=== PATIENT | male | born 1945 | race Caucasian/White ===

== ENCOUNTER 2019-06-05 14:51 | Outpatient (CLI) | payer OTHER ==
--- NOTE | 2019-06-16 09:40 | CONSULTATION REPORT ---
CHIEF COMPLAINT: Left shoulder pain. HISTORY OF PRESENT ILLNESS: This right-hand dominant 73-year-old white male is seen accompanied by his today for recommendations regarding treatment of his left shoulder. He has had shoulder pain for what he estimates as about eight months. He does indicate that he developed this gradually and currently he has bone on bone. He has been seen at the [facility] in [place], [place], sees Dr. Lau there for routine primary care needs, indicates he has seen Dr. Doshi, an orthopedist at the [facility] in February of this year and was advised that he needed to go ahead and get a left shoulder replacement procedure done. Dr. Doshi does not do these procedures himself, and the patient was advised to seek same at private facility. Referral has been provided for evaluation and treatment including shoulder replacement on the left as indicated. I do note that the patient describes his pain as intermittent, describes the quality of pain as sharp, indicates it is worsening. He indicates his pain at rest is 3/10 and pain with activity is 10/10. Pain has progressed with activities of daily living. He does have night pain which awakens him at night. His left shoulder pain is worse with activity, lifting, pushing out of a chair, better with heat and nonsteroidal anti-inflammatory medications as well as rest. He has tried this as well as glucosamine. He has had consideration given to injections in the left shoulder, but has declined same. The patient notes that he has no numbness, tingling or weakness in the left shoulder/upper extremity area routinely. He does have some intermittent neck pain. He does ask on numerous occasions about treatment of Kathleen cyst left knee. He does acknowledge, however, that his left shoulder does seem to hurt worse now than the left knee and he wants to go ahead and be evaluated today for the left shoulder rather than the left knee/Kathleen cyst. PAST MEDICAL HISTORY: The patient has never had any surgery on his shoulders. He does report a possible history of heart problems in the past, indicates he is thought to probably have had a heart attack that occurred more than 10 years ago, possibly as long as 20 years ago per his , this reportedly per EKG findings. He says he has not been observed to have any current coronary artery difficulties/anginal pains on questioning. Otherwise, his past medical history is positive for anxiety, arthritis, depression, hypercholesterolemia, joint pain in the knees, ankles and left shoulder, psychiatric care, sleep apnea for which he uses a CPAP machine set at 2. He indicates he never had any troubles with anesthesia. PAST SURGICAL HISTORY: He did have kidney stone removal 2018 at the [facility] in [place]. There is no other past surgical history listed. ALLERGIES: This patient reports that he is allergic to Lipitor, which breaks him out in hives. MEDICATIONS: His current medications include gabapentin 400 mg one p.o. q.a.m., one at noon and two at bedtime p.o., atorvastatin calcium 40 mg p.o. daily although he does indicate he is allergic to Lipitor, which is atorvastatin calcium. In any event, the patient also takes finasteride 5 mg, which he indicates is a "pee pill." He also takes sertraline 100 mg one and a half p.o. q. day for depression and bupropion 200 mg one in the morning and one at noon for depression. He takes glucosamine/chondroitin two p.o. q. day, uses eye drops, Latanoprost 0.005 x1 into the eyes. He also takes diclofenac 75 mg twice daily for arthritis. SOCIAL HISTORY: The patient reports having quit cigarettes altogether about 20 years ago, did smoke about a pack a day or so prior to that for 40 years. His total pack year history is approximately 80 pack years, even though he quit 20 years ago, smoked two packs per day prior to that time. He denies alcohol use, abuse or history of same. He does not take fish oil. He denies illicit drug use, abuse or history of same. The patient does report being retired. He is , in attendance today. 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 This involved some degree of manual work, but nothing heavy or demanding, no lifting, climbing, crawling, etc, per patient and his . FAMILY HISTORY: Positive for hypertension and heart disease in his mother. Cancer, heart attack and heart disease in his father. REVIEW OF SYSTEMS: Positive for hives, positive for loss of hearing, positive for corrective lenses/glasses, positive shortness of breath with activity. The patient sleeps on one pillow at night. He is able to walk two blocks without shortness of breath. He indicates he had a heart workup including echocardiogram, stress test and cardiac catheterization in year 1999. He does report sleep apnea, indicates lung workup with pulmonary function test in 1999. He reports diarrhea once in a while, positive hemorrhoid history. He does indicate genitourinary frequency, kidney stones, frequent night urination, erection difficulties. He does indicate history of psychiatric counseling and panic attacks. He does indicate positive anxiety/depression. He indicates hypercholesterolemia. Remainder of review of systems is negative including constitutional, skin, breast, ears, nose, throat, eyes, cardiovascular, respiratory, gastrointestinal, genitourinary, psychiatric, neurologic and endocrine as outlined on patient's review of systems sheet provided on intake today, dated 06/05/2019. PHYSICAL EXAMINATION: The patient's vital signs reveal temperature of 98.4, pulse 65, respirations 18 and blood pressure 139/81. The patient has oxygen saturation not listed. He is 6 feet 3 inches in height with a weight of 183 pounds. He rates his pain on presentation as 5/10. HEENT: Normocephalic. Neck: Mildly decreased range of motion is noted. Lungs: Clear to percussion bilaterally. Cardiovascular: Regular rate and rhythm with pulses present and symmetric in radial aspect of wrists bilaterally. Abdomen: Soft, nontender. Extremity exam: The patient has limited range of motion left shoulder, can actively and passively abduct to approximately 90 degrees at best, forward flexes about the same. He does have crepitus on range of motion of left shoulder. He is able to maintain abduction and forward flexion against gravity, but has pain and weakness on attempts to abduct or forward flex against any resistance. The patient has tenderness rather diffusely left shoulder. There is no erythema/induration left shoulder. He is able to flex his elbows against resistance, near symmetric. Pulses are present and symmetric radial aspect of wrist. The patient has intact motor sensory exam distally both upper extremities. X-RAYS: The patient has had plain film x-rays of the left shoulder, and these available for review, films from January 2019, three views. These are noted to reveal advanced degenerative changes left shoulder with subchondral sclerotic changes, prominent osteophyte formation particularly along the inferior aspect of the humeral head at the articulation with the glenoid. There is prominent acromion suggested consistent with type 2 acromion. Some mild humeral acromial narrowing is suggested, but this is mild and there is good glenohumeral alignment noted on the transcapular lateral view x-ray. IMPRESSION: 1. Advanced osteoarthritis left shoulder. 2. 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 3. The patient reports arthritic ankles which have been assessed elsewhere, indicates that consideration is being given to fusion on one or both ankles, but he has not decided to proceed with that. 4. Sleep apnea, uses CPAP. 5. Anxiety. 6. Hypercholesterolemia. 7. Remote history of cigarette smoking, quit 20 years ago; approximately 80- pack year history of cigarette usage prior to 20 years ago. 8. History of kidney stones. 9. Erectile dysfunction. 10. Possible history of heart attack 10 to 20 years ago without current cardiovascular symptomatology. RECOMMENDATIONS: Options are discussed with the patient and his . I believe he would likely benefit from a left shoulder replacement procedure. I did discuss the pros and cons, alternatives available and expectations and limitations of the procedure with the patient and his . He is advised that the primary expectation is relief in amount of pain he experiences from the left shoulder. Pain relief, he is advised, is expected but not guaranteed. I did advise him that improvement in function/strength/range of motion of the shoulder is not generally expected, but sometimes does occur. I advised him that the reason to get the surgery done is because of pain rather than to expect improvement in function/use of that left shoulder, he and his acknowledged. I did advise both parties that I would expect him to have an approximate 90% to 95% likelihood of being satisfied with his choice to undergo a shoulder replacement given the passage of about a year's time postop. I advised him that means that about 9/10 individuals who underwent the surgery, possibly as high as 19/20 individuals who underwent the surgery, can expect that they would be glad that they decided to proceed with surgery when asked about it a year later. I advised him that this does not mean that he would be 90% to 95% better than he was before the shoulder surgery. I did advise him that the complications can and do occur in some individuals following shoulder replacement surgery. He is advised that these include, but are not limited to, infection, loosening of components, periprosthetic fractures, need for revision on one or more occasions, dislocation of components, need for removal of components, , amputation, myocardial infarction, stroke, life and/or limb threatening blood clots, infection with reimplantation or removal of component altogether at some point, failure to relieve pain, worse pain. I did advise him that my expectation, again, is that he would have a very small risk of any of these issues occurring, but that any of these or more than one of these, as well, can, in fact, occur in some individuals and he is not exempt from having a bad result. He is reminded that expectation is that approximately 90% to 95% or more of individuals undergoing the shoulder replacement surgery are expected to be glad about that decision when asked about it a year later, primarily because there is less pain noted at that point. I did advise him that shoulder replacement does mean that an individual has to avoid doing any heavy or demanding activities involving use of that shoulder, such as heavy lifting, pushing/pulling. He seems a little reluctant to give up these types of activities even though the and he acknowledge that he very rarely does any such activities currently, has not, in fact, done any such activities in the last several years even though it was common for him to do so prior to that point. He wants to think all of this over, and I think it is appropriate for him to come to his own decision, given the facts, and I recommended he call to schedule the left shoulder replacement surgery when he has made a final decision. I did advise him that he certainly has the orthopedic criteria to warrant performing the surgery, but that he would require preoperative medical clearance prior to actually doing the surgery itself. Discussed what is involved with the surgical procedure, expectations and limitations. All of his questions and those of his are answered to both parties voiced satisfaction. I did advise him that he likely will remain a satisfactory candidate for surgery for the next few months to years, although that certainly is subject to continued good health and medical clearance. I also advised him that I will be happy to see him in regard to his left knee concerns as he does mention that on several occasions. Will need to see him at a separate setting for left knee assessment and will need him to complete knee assessment form, both sides, and have x-rays, recent or on presentation day of evaluation. Should he call to schedule the left shoulder replacement surgery in the next several weeks, then can proceed directly with placement of order for same, which is not placed at the time of today's visit given the patient's request to wait. If he calls back two or more months following today's visit, I definitely want to see him in the office prior to placing order for the left shoulder replacement. We did talk about various types of replacements available, and likely will favor reverse shoulder arthroplasty in his instance as opposed to primary total shoulder arthroplasty or a hemiarthroplasty. Discussed with him and the the differences between these choices. Thank you for the opportunity to evaluate this pleasant gentleman, and hopefully we can provide him some benefit through surgical treatment of his left shoulder arthritis if and when he decides to proceed with same. Sincerely, Dion Matson MD/Darek [id number] Job #[id number] lou MOLINA
== END 2019-06-05 15:25 ==
LOC: ORHTO 14:51
PROVIDERS: ATTEND Orthopaedic Surgery
DX: M19.012 Primary osteoarthritis, left shoulder (principal); M71.22 Synovial cyst of popliteal space [Baker], left knee; G47.30 Sleep apnea, unspecified; F41.9 Anxiety disorder, unspecified; E78.00 Pure hypercholesterolemia, unspecified; N52.9 Male erectile dysfunction, unspecified; Z87.891 Personal history of nicotine dependence; Z87.442 Personal history of urinary calculi; Z99.89 Dependence on other enabling machines and devices
CPT/HCPCS: 99203